=== PATIENT | male | born 1980 | race Two or more races ===

== ENCOUNTER 2024-10-20 19:13 | Emergency (ER) | payer OTHER ==
[~2024-10-20] VITALS: Ht 165.1 cm; Wt 80.7 kg
[2024-10-20] MEDS ORDERED: NORFLEX100MG PO (22:59)
[2024-10-20] MEDS ORDERED: KETO10TA2 PO (22:59)
[2024-10-20] MEDS ORDERED: KETOROLAC TROMETHAMINE 60 MG VIAL IM ONE ×2 (23:00→23:16)
[2024-10-20] MEDS ORDERED: ORPHENADRINE CITRATE 30 MG/ML AMPUL IM ONE (23:00)
[2024-10-20] MEDS ORDERED: ORPHENADRINE CITRATE 30 MG/ML AMPUL ONE (23:16)
== END 2024-10-20 23:51 | disposition home or self-care (01) ==
LOC: ER 19:16
DX: M62.838 Other muscle spasm (principal); Z85.47 Personal history of malignant neoplasm of testis